=== PATIENT | male | born 1975 | race Caucasian/White ===

== ENCOUNTER 2016-05-04 11:41 | Emergency (ER) | payer OTHER ==
[2016-05-04] MEDS ORDERED: LIDOCAINE 2% W/EPIN INJ 20ML **PRES FREE As Ordered ONE (12:08)
[2016-05-04] MEDS ORDERED: ADACEL/BOOSTRIX VACCINE (DIPHTH/PERTUSS/ACELL/TETANUS)0.5ML SYR (90715) As Ordered ONE (13:01)
--- NOTE | 2016-05-04 13:08 | EDDOCDS ---
Nurse's Notes [facility] Name: Jarocho Mason Age: 41 yrs Sex: Male : 1975 Arrival Date: 05/04/2016 Time: 11:41 Bed PD Private MD: Ramirez Valente MD Diagnosis: Laceration without foreign body of scalp Presentation: 05/04 11:45 Presenting complaint: Patient states: tripped and fell and hit right side of head. pt dsf denies LOC. This patient has no additional risk factors. Mechanism of Injury: The problem was sustained at work, resulted from a direct blow. Adult Sepsis Screening: The patient does not have new or worsening altered mentation. Patient's respiratory rate is less than 22. Systolic blood pressure is greater than 100. Patient has a qSOFA score of 0- Negative Sepsis Screen. Suicide/Homicide risk assessment- the patient denies having any suicidal and/or homicidal ideations and does not present with any other emotional, behavioral or mental health complaints. Status: Patient is not a director of cardiopulmonary services or dependent. Transition of care: patient was not received from another setting of care. 11:45 Acuity: FACUNDO Level 4 dsf 11:45 Method Of Arrival: Wheelchair dsf Triage Assessment: 11:47 General: Appears in no apparent distress, Behavior is appropriate for age, cooperative. dsf Pain: Location: forehead Pain currently is 3 out of 10 on a pain scale. Quality of pain is described as aching. HIV screening NA for this visit Offered previously. Neurological: Level of Consciousness is awake, alert, Reports no additional symptoms. Historical: - Allergies: no known allergies; - Home Meds: 1. tramadol 50 mg Oral tab 1 tab every 6 hours (Last dose: Unknown) 2. Tylenol Arthritis Pain 650 mg oral TbER Unknown as needed - PMHx: none; - PSHx: 3 right knee surgeries; - Social history: Smoking status: Patient states was never smoker of tobacco. No barriers to communication noted, The patient speaks fluent Nigerien, Speaks appropriately for age. - Family history: Not pertinent. - : The pt / caregiver states he / she is not on anticoagulants. Home medication list is obtained from the patient. - Exposure Risk Screening:: None identified. Screenin:04 Screening information is obtained from the patient. Fall risk: No risks identified. dsf Assistance ADL's: requires no assistance with activities of daily living. Abuse/DV Screen: The patient / caregiver reports he/she is: not in a situation that causes fear, pain or injury. Nutritional screening: No deficits noted. Advance Directives: Currently, there is no health care proxy. home support is adequate. Assessment: 13:04 Adult Sepsis Screening: The patient does not have new or worsening altered mentation. dsf Patient's respiratory rate is less than 22. Systolic blood pressure is greater than 100. Patient has a qSOFA score of 0- Negative Sepsis Screen. General: Appears in no apparent distress, comfortable, Behavior is appropriate for age, cooperative. Pain: Denies pain. Neurological: Level of Consciousness is awake, alert. Cardiovascular: Capillary refill < 3 seconds. Respiratory: Airway is patent Respiratory effort is even, unlabored, Respiratory pattern is regular, symmetrical. Derm: Skin is pink, warm & dry. bandage on right side of forehead clean dry and intact. Vital Signs: 11:43 BP 156 / 90; Pulse 71; Resp 18; Temp 98.1(T); Pulse Ox 98% on R/A; Weight 90.72 kg; dem1 Height 5 ft. 11 in. (180.34 cm); Pain 3/10; 11:43 Body Mass Index 27.89 (90.72 kg, 180.34 cm) dem1 Vitals: 11:43 Log In Time: May 04, 2016 at 11:40. dem1 [place] Coma Score: 11:45 Eye Response: spontaneous(4). Verbal Response: oriented(5). Motor Response: obeys dsf commands(6). Total: 15. ED Course: 11:42 Patient visited by Roverto Rouse. dem1 11:42 Ramirez Valente is Private Physician. dem1 11:42 Patient moved to Waiting dem1 11:43 Patient moved to Pre RCE dem1 11:45 Triage Initiated dsf 11:48 Patient moved to Triage 2 dsf 11:50 Yuni Gillis PA is PHCP. btw 11:50 Grecia Billingsley MD is Attending Physician. btw 11:50 Patient visited by Yuni Gillis PA. btw 12:11 Patient moved to PD btw 12:50 [employer], . is Referral Physician. btw 12:50 Wetterhahn, Ramirez is Referral Physician. btw 13:04 The patient / caregiver is instructed regarding the plan of care and ED course. dsf 13:04 No IV's were initiated during this patient's visit. No procedures done that require dsf assistance. 13:05 [facility] Payment Agreement was scanned into [employer] and attached to record. mm15 Administered Medications: 12:31 Drug: Lidocaine-Epinephrine 10 ml [lidocaine 20 mg/mL (2 %)-epinephrine 1:100,000 kr3 injection solution (10 mL)] {Note: by yuni LANTIGUA.} Route: Infiltration; 13:04 CANCELLED (pt had one on 09/2014): Tetanus- Diptheria-Acellular Pertussis 0.5 ml IM dsf once; Routine booster 10-64yrs, >64 with child contact [facility] Order Results: There are currently no results for this order. Outcome: 12:51 Discharge ordered by Provider. btw 13:04 Discharge Assessment: Patient awake, alert and oriented x 3. No cognitive and/or dsf functional deficits noted. Patient verbalized understanding of disposition instructions. patient administered narcotics - no. The following High Risk Discharge criteria are identified: None. Discharged to work. Condition: stable. Discharge instructions given to patient, Instructed on discharge instructions, follow up and referral plans. Demonstrated understanding of instructions, Pt was receptive of discharge instructions/ teaching. No special radiology studies were completed. Property :Personal belongings accompany Pt. 13:06 Patient left the ED. dsf Signatures: Gracy Cagle RN RN kr3 Wolfenden, Brandon, PA PA btw Fuller, Desiree, RN RN dsf Mack, Demeishia dem1 Nayeli Quinn mm15 MTDTamra
--- NOTE | 2016-05-04 13:08 | EDDOCDS ---
Physician Documentation [facility] Name: Jarocho Mason Age: 41 yrs Sex: Male : 1975 Arrival Date: 05/04/2016 Time: 11:41 Bed PD Private MD: Ramirez Valente MD Disposition: 05/04/16 12:51 Discharged to Home/Self Care. Impression: Laceration without foreign body of scalp. - Condition is Stable. - Discharge Instructions: Laceration Care, Adult, Stitches, [place], or Adhesive Wound Closure, Facial Laceration, [id number]. - Medication Reconciliation, Local Pharmacy Hours form. - Follow up: Employee Health Office, .; When: Upon discharge from the Emergency Department; Reason: Further diagnostic work-up, Recheck today's complaints, Continuance of care. Follow up: Ramirez Valente; When: 1 week; Reason: Wound/Symptom Recheck, Staple/Suture removal. - Problem is new. - Symptoms have improved. Historical: - Allergies: no known allergies; - Home Meds: 1. tramadol 50 mg Oral tab 1 tab every 6 hours (Last dose: Unknown) 2. Tylenol Arthritis Pain 650 mg oral TbER Unknown as needed - PMHx: none; - PSHx: 3 right knee surgeries; - Social history: Smoking status: Patient states was never smoker of tobacco. No barriers to communication noted, The patient speaks fluent Azerbaijani, Speaks appropriately for age. - Family history: Not pertinent. - : The pt / caregiver states he / she is not on anticoagulants. Home medication list is obtained from the patient. - Exposure Risk Screening:: None identified. Vital Signs: 05/04 11:43 BP 156 / 90; Pulse 71; Resp 18; Temp 98.1(T); Pulse Ox 98% on R/A; Weight 90.72 kg / dem1 200 lbs; Height 5 ft. 11 in. (180.34 cm); Pain 3/10; 11:43 Body Mass Index 27.89 (90.72 kg, 180.34 cm) dem1 [place] Coma Score: 11:45 Eye Response: spontaneous(4). Verbal Response: oriented(5). Motor Response: obeys dsf commands(6). Total: 15. Procedures: 12:26 Laceration repair:. btw Laceration: 12:26 Wound Repair of 3.5cm ( 1.4in ) full thickness laceration to right frontal area and btw right side of forehead. Irregularly shaped.. Minimal bleeding noted.. Distal neuro/vascular/tendon intact. Anesthesia: Local anesthetic administered with 6 mls of 1% lidocaine w/ Epi. Wound prep: Simple cleansing with hibiclenz by provider, Wound irrigation with saline by provider, Wound explored moderately. Skin closed with 7 x 5-0 Prolene using Simple interrupted sutures. Dressed with bandaid. Patient tolerated well. MDM: 12:08 Lidocaine-Epinephrine 2 %-1:100,000 10 ml Infiltration once; to bedside ordered. btw 13:00 Financial registration complete. mm15 13:05 [facility] Payment Agreement was scanned into [employer] and attached to record. mm15 Administered Medications: 12:31 Drug: Lidocaine-Epinephrine 10 ml [lidocaine 20 mg/mL (2 %)-epinephrine 1:100,000 kr3 injection solution (10 mL)] {Note: by yuni LANTIGUA.} Route: Infiltration; 13:04 CANCELLED (pt had one on 09/2014): Tetanus- Diptheria-Acellular Pertussis 0.5 ml IM dsf once; Routine booster 10-64yrs, >64 with child contact [facility] Signatures: Yuni Gillis PA PA btw Gill LynnRN RN dsf Nayeli Quinn mm15 Gracy Cagle RN kr3 The chart was reviewed and I authenticate all verbal orders and agree with the evaluation and treatment provided.Corrections: (The following items were deleted from the chart) 13:04 12:54 Tetanus- Diptheria-Acellular Pertussis 0.5 ml IM once; Routine booster dsf 10-64yrs, >64 with child contact [place] ordered. btw Attachments: 13:05 [facility] Payment Agreement mm15 MTDD
--- NOTE | 2016-05-06 14:07 | EDDOCDS ---
Physician Documentation [facility] Name: Jarocho Mason Age: 41 yrs Sex: Male : 1975 Arrival Date: 05/04/2016 Time: 11:41 Bed PD Private MD: Ramirez Valente MD Disposition: 05/04/16 12:51 Discharged to Home/Self Care. Impression: Laceration without foreign body of scalp. - Condition is Stable. - Discharge Instructions: Laceration Care, Adult, Stitches, [place], or Adhesive Wound Closure, Facial Laceration, [id number]. - Medication Reconciliation, Local Pharmacy Hours form. - Follow up: Employee Health Office, .; When: Upon discharge from the Emergency Department; Reason: Further diagnostic work-up, Recheck today's complaints, Continuance of care. Follow up: Ramirez Valente; When: 1 week; Reason: Wound/Symptom Recheck, Staple/Suture removal. - Problem is new. - Symptoms have improved. Historical: - Allergies: no known allergies; - Home Meds: 1. tramadol 50 mg Oral tab 1 tab every 6 hours (Last dose: Unknown) 2. Tylenol Arthritis Pain 650 mg oral TbER Unknown as needed - PMHx: none; - PSHx: 3 right knee surgeries; - Social history: Smoking status: Patient states was never smoker of tobacco. No barriers to communication noted, The patient speaks fluent Central African, Speaks appropriately for age. - Family history: Not pertinent. - : The pt / caregiver states he / she is not on anticoagulants. Home medication list is obtained from the patient. - Exposure Risk Screening:: None identified. Vital Signs: 05/04 11:43 BP 156 / 90; Pulse 71; Resp 18; Temp 98.1(T); Pulse Ox 98% on R/A; Weight 90.72 kg / dem1 200 lbs; Height 5 ft. 11 in. (180.34 cm); Pain 3/10; 11:43 Body Mass Index 27.89 (90.72 kg, 180.34 cm) dem1 [place] Coma Score: 11:45 Eye Response: spontaneous(4). Verbal Response: oriented(5). Motor Response: obeys dsf commands(6). Total: 15. Procedures: 12:26 Laceration repair:. btw Laceration: 12:26 Wound Repair of 3.5cm ( 1.4in ) full thickness laceration to right frontal area and btw right side of forehead. Irregularly shaped.. Minimal bleeding noted.. Distal neuro/vascular/tendon intact. Anesthesia: Local anesthetic administered with 6 mls of 1% lidocaine w/ Epi. Wound prep: Simple cleansing with hibiclenz by provider, Wound irrigation with saline by provider, Wound explored moderately. Skin closed with 7 x 5-0 Prolene using Simple interrupted sutures. Dressed with bandaid. Patient tolerated well. MDM: 12:08 Lidocaine-Epinephrine 2 %-1:100,000 10 ml Infiltration once; to bedside ordered. btw 13:00 Financial registration complete. [facility] : [facility] Payment Agreement was scanned into [employer] and attached to record. [facility] 05/05 07:00 T-Sheet-- Draft Copy was scanned into [employer] and attached to record. gb Administered Medications: 05/04 12:31 Drug: Lidocaine-Epinephrine 10 ml [lidocaine 20 mg/mL (2 %)-epinephrine 1:100,000 kr3 injection solution (10 mL)] {Note: by yuni LANTIGUA.} Route: Infiltration; 13:04 CANCELLED (pt had one on 09/2014): Tetanus- Diptheria-Acellular Pertussis 0.5 ml IM dsf once; Routine booster 10-64yrs, >64 with child contact [place] Signatures: Florecita Mae, Reg Reg Yuni Gillis PA PA btw Gill Lynn RN RN dsf Nayeli Quinn mm15 Gracy Cagle RN kr3 The chart was reviewed and I authenticate all verbal orders and agree with the evaluation and treatment provided.Corrections: (The following items were deleted from the chart) 13:04 12:54 Tetanus- Diptheria-Acellular Pertussis 0.5 ml IM once; Routine booster dsf 10-64yrs, >64 with child contact [place] ordered. btw Attachments: 13:05 [facility] Payment Agreement mm15 05/05 07:00 T-Sheet-- Draft Copy gb Chart Complete MTDD
--- NOTE | 2016-05-06 14:07 | EDDOCDS ---
Nurse's Notes [facility] Name: Jarocho Mason Age: 41 yrs Sex: Male : 1975 Arrival Date: 05/04/2016 Time: 11:41 Bed PD Private MD: Ramirez Valente MD Diagnosis: Laceration without foreign body of scalp Presentation: 05/04 11:45 Presenting complaint: Patient states: tripped and fell and hit right side of head. pt dsf denies LOC. This patient has no additional risk factors. Mechanism of Injury: The problem was sustained at work, resulted from a direct blow. Adult Sepsis Screening: The patient does not have new or worsening altered mentation. Patient's respiratory rate is less than 22. Systolic blood pressure is greater than 100. Patient has a qSOFA score of 0- Negative Sepsis Screen. Suicide/Homicide risk assessment- the patient denies having any suicidal and/or homicidal ideations and does not present with any other emotional, behavioral or mental health complaints. 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 Transition of care: patient was not received from another setting of care. 11:45 Acuity: FACUNDO Level 4 dsf 11:45 Method Of Arrival: Wheelchair dsf Triage Assessment: 11:47 General: Appears in no apparent distress, Behavior is appropriate for age, cooperative. dsf Pain: Location: forehead Pain currently is 3 out of 10 on a pain scale. Quality of pain is described as aching. HIV screening NA for this visit Offered previously. Neurological: Level of Consciousness is awake, alert, Reports no additional symptoms. Historical: - Allergies: no known allergies; - Home Meds: 1. tramadol 50 mg Oral tab 1 tab every 6 hours (Last dose: Unknown) 2. Tylenol Arthritis Pain 650 mg oral TbER Unknown as needed - PMHx: none; - PSHx: 3 right knee surgeries; - Social history: Smoking status: Patient states was never smoker of tobacco. No barriers to communication noted, The patient speaks fluent Palestinian, Speaks appropriately for age. - Family history: Not pertinent. - : The pt / caregiver states he / she is not on anticoagulants. Home medication list is obtained from the patient. - Exposure Risk Screening:: None identified. Screenin:04 Screening information is obtained from the patient. Fall risk: No risks identified. dsf Assistance ADL's: requires no assistance with activities of daily living. Abuse/DV Screen: The patient / caregiver reports he/she is: not in a situation that causes fear, pain or injury. Nutritional screening: No deficits noted. Advance Directives: Currently, there is no health care proxy. home support is adequate. Assessment: 13:04 Adult Sepsis Screening: The patient does not have new or worsening altered mentation. dsf Patient's respiratory rate is less than 22. Systolic blood pressure is greater than 100. Patient has a qSOFA score of 0- Negative Sepsis Screen. General: Appears in no apparent distress, comfortable, Behavior is appropriate for age, cooperative. Pain: Denies pain. Neurological: Level of Consciousness is awake, alert. Cardiovascular: Capillary refill < 3 seconds. Respiratory: Airway is patent Respiratory effort is even, unlabored, Respiratory pattern is regular, symmetrical. Derm: Skin is pink, warm & dry. bandage on right side of forehead clean dry and intact. Vital Signs: 11:43 BP 156 / 90; Pulse 71; Resp 18; Temp 98.1(T); Pulse Ox 98% on R/A; Weight 90.72 kg; dem1 Height 5 ft. 11 in. (180.34 cm); Pain 3/10; 11:43 Body Mass Index 27.89 (90.72 kg, 180.34 cm) dem1 Vitals: 11:43 Log In Time: May 04, 2016 at 11:40. dem1 [place] Coma Score: 11:45 Eye Response: spontaneous(4). Verbal Response: oriented(5). Motor Response: obeys dsf commands(6). Total: 15. ED Course: 11:42 Patient visited by Roverto Rouse. dem1 11:42 Ramirez Valente is Private Physician. dem1 11:42 Patient moved to Waiting dem1 11:43 Patient moved to Pre RCE dem1 11:45 Triage Initiated dsf 11:48 Patient moved to Triage 2 dsf 11:50 Yuni Gillis PA is PHCP. btw 11:50 Grecia Billingsley MD is Attending Physician. btw 11:50 Patient visited by Yuni Gillis PA. btw 12:11 Patient moved to PD btw 12:50 [facility], . is Referral Physician. btw 12:50 Wetterhahn, Ramirez is Referral Physician. btw 13:04 The patient / caregiver is instructed regarding the plan of care and ED course. dsf 13:04 No IV's were initiated during this patient's visit. No procedures done that require dsf assistance. 13:05 [facility] Payment Agreement was scanned into [employer] and attached to record. mm15 05/05 07:00 T-Sheet-- Draft Copy was scanned into [employer] and attached to record. gb Administered Medications: 05/04 12:31 Drug: Lidocaine-Epinephrine 10 ml [lidocaine 20 mg/mL (2 %)-epinephrine 1:100,000 kr3 injection solution (10 mL)] {Note: by yuni LANTIGUA.} Route: Infiltration; 13:04 CANCELLED (pt had one on 09/2014): Tetanus- Diptheria-Acellular Pertussis 0.5 ml IM dsf once; Routine booster 10-64yrs, >64 with child contact [place] Order Results: There are currently no results for this order. Outcome: 12:51 Discharge ordered by Provider. btw 13:04 Discharge Assessment: Patient awake, alert and oriented x 3. No cognitive and/or dsf functional deficits noted. Patient verbalized understanding of disposition instructions. patient administered narcotics - no. The following High Risk Discharge criteria are identified: None. Discharged to work. Condition: stable. Discharge instructions given to patient, Instructed on discharge instructions, follow up and referral plans. Demonstrated understanding of instructions, Pt was receptive of discharge instructions/ teaching. No special radiology studies were completed. Property :Personal belongings accompany Pt. 13:06 Patient left the ED. dsf Signatures: Florecita Mae, Reg Reg Gracy Cagle,RN RN Yuni Gutierrez PA PA btw Fuller, Desiree,RN RN teef Roverto Rouse Marlynn mm15 Chart Complete MTDD
--- NOTE | 2016-05-06 14:07 | EDDOCDS ---
Physician Documentation [facility] Name: Jarocho Mason Age: 41 yrs Sex: Male : 1975 Arrival Date: 05/04/2016 Time: 11:41 Bed PD Private MD: Ramirez Valente MD Disposition: 05/04/16 12:51 Discharged to Home/Self Care. Impression: Laceration without foreign body of scalp. - Condition is Stable. - Discharge Instructions: Laceration Care, Adult, Stitches, [place], or Adhesive Wound Closure, Facial Laceration, [id number]. - Medication Reconciliation, Local Pharmacy Hours form. - Follow up: Employee Health Office, .; When: Upon discharge from the Emergency Department; Reason: Further diagnostic work-up, Recheck today's complaints, Continuance of care. Follow up: Ramirez Valente; When: 1 week; Reason: Wound/Symptom Recheck, Staple/Suture removal. - Problem is new. - Symptoms have improved. Historical: - Allergies: no known allergies; - Home Meds: 1. tramadol 50 mg Oral tab 1 tab every 6 hours (Last dose: Unknown) 2. Tylenol Arthritis Pain 650 mg oral TbER Unknown as needed - PMHx: none; - PSHx: 3 right knee surgeries; - Social history: Smoking status: Patient states was never smoker of tobacco. No barriers to communication noted, The patient speaks fluent Zimbabwean, Speaks appropriately for age. - Family history: Not pertinent. - : The pt / caregiver states he / she is not on anticoagulants. Home medication list is obtained from the patient. - Exposure Risk Screening:: None identified. Vital Signs: 05/04 11:43 BP 156 / 90; Pulse 71; Resp 18; Temp 98.1(T); Pulse Ox 98% on R/A; Weight 90.72 kg / dem1 200 lbs; Height 5 ft. 11 in. (180.34 cm); Pain 3/10; 11:43 Body Mass Index 27.89 (90.72 kg, 180.34 cm) dem1 [place] Coma Score: 11:45 Eye Response: spontaneous(4). Verbal Response: oriented(5). Motor Response: obeys dsf commands(6). Total: 15. Procedures: 12:26 Laceration repair:. btw Laceration: 12:26 Wound Repair of 3.5cm ( 1.4in ) full thickness laceration to right frontal area and btw right side of forehead. Irregularly shaped.. Minimal bleeding noted.. Distal neuro/vascular/tendon intact. Anesthesia: Local anesthetic administered with 6 mls of 1% lidocaine w/ Epi. Wound prep: Simple cleansing with hibiclenz by provider, Wound irrigation with saline by provider, Wound explored moderately. Skin closed with 7 x 5-0 Prolene using Simple interrupted sutures. Dressed with bandaid. Patient tolerated well. MDM: 12:08 Lidocaine-Epinephrine 2 %-1:100,000 10 ml Infiltration once; to bedside ordered. btw 13:00 Financial registration complete. [facility] : [facility] Payment Agreement was scanned into [employer] and attached to record. [facility] 05/05 07:00 T-Sheet-- Draft Copy was scanned into [employer] and attached to record. gb Administered Medications: 05/04 12:31 Drug: Lidocaine-Epinephrine 10 ml [lidocaine 20 mg/mL (2 %)-epinephrine 1:100,000 kr3 injection solution (10 mL)] {Note: by yuni LANTIGUA.} Route: Infiltration; 13:04 CANCELLED (pt had one on 09/2014): Tetanus- Diptheria-Acellular Pertussis 0.5 ml IM dsf once; Routine booster 10-64yrs, >64 with child contact [place] [employer] Signatures: Florecita Mae, Reg Reg Yuni Gillis PA PA btw Gill Lynn RN RN dsf Nayeli Quinn mm15 Gracy Cagle RN kr3 The chart was reviewed and I authenticate all verbal orders and agree with the evaluation and treatment provided.Corrections: (The following items were deleted from the chart) 13:04 12:54 Tetanus- Diptheria-Acellular Pertussis 0.5 ml IM once; Routine booster dsf 10-64yrs, >64 with child contact [place] ordered. btw Attachments: 13:05 [facility] Payment Agreement mm15 05/05 07:00 T-Sheet-- Draft Copy gb Chart Complete MTDD
== END 2016-05-04 13:06 | disposition home or self-care (01) ==
LOC: M ED 11:41
DX: S01.01XA Laceration without foreign body of scalp, initial encounter (principal); W18.09XA Striking against other object with subsequent fall, initial encounter; Y92.89 Other specified places as the place of occurrence of the external cause; Y93.89 Activity, other specified; Y99.0 Civilian activity done for income or pay

== ENCOUNTER → 2016-05-17 | Outpatient (CLI) | payer OTHER ==
[2016-05-17 19:07] LABS: ALBUMIN 4.2 GM/DL (3.2-5.2); ALBUMIN/GLOBULIN RATIO 1.27 (1.00-1.93); ALKALINE PHOSPHATASE 111 U/L (45-117); ALT/SGPT 42 U/L (12-78); ANION GAP 7 MEQ/L (8-16); AST/SGOT 24 U/L (15-37); BILIRUBIN,DIRECT < 0.1 MG/DL (0.0-0.2); BILIRUBIN,TOTAL 0.3 MG/DL (0.2-1.0); BLOOD UREA NITROGEN 22 MG/DL (7-18); CALCIUM LEVEL 8.8 MG/DL (8.5-10.1); CARBON DIOXIDE LEVEL 32 MEQ/L (21-32); CHLORIDE LEVEL 101 MEQ/L (98-107); CREATININE FOR GFR 1.18 MG/DL (0.70-1.30); GLOMERULAR FILTRATION RATE > 60.0 (>60); GLUCOSE, FASTING 78 MG/DL (70-105); POTASSIUM SERUM 3.9 MEQ/L (3.5-5.1); SODIUM LEVEL 140 MEQ/L (136-145); TOTAL PROTEIN 7.5 GM/DL (6.4-8.2)
== END ==
LOC: M LAB 18:23
PROVIDERS: ATTEND Physician Assistant
DX: M17.11 Unilateral primary osteoarthritis, right knee (principal)

== ENCOUNTER → 2016-12-14 | Outpatient (CLI) | payer OTHER ==
[2016-12-14 18:28] LABS: CREATININE FOR GFR 1.58 MG/DL (0.70-1.30); GLOMERULAR FILTRATION RATE 51.5 (>60)
== END ==
LOC: M LAB 16:42
PROVIDERS: ATTEND Physician Assistant
DX: Z79.899 Other long term (current) drug therapy (principal)

== ENCOUNTER → 2017-10-25 | Outpatient (CLI) | payer OTHER ==
[2017-10-25 19:03] LABS: ANION GAP 9 MEQ/L (8-16); BLOOD UREA NITROGEN 22 MG/DL (7-18); CARBON DIOXIDE LEVEL 29 MEQ/L (21-32); CHLORIDE LEVEL 106 MEQ/L (98-107); CHOLESTEROL LEVEL 224 MG/DL (<200); CHOLESTEROL RISK RATIO 4.226 (<5); CREATININE FOR GFR 0.99 MG/DL (0.70-1.30); GLOMERULAR FILTRATION RATE > 60.0 (>60); GLUCOSE, FASTING 94 MG/DL (70-100); HDL CHOLESTEROL 53 MG/DL (>40); LDL CHOLESTEROL 118.6 MG/DL (<100); NON-HDL-C 171 MG/DL; POTASSIUM SERUM 4.7 MEQ/L (3.5-5.1); SODIUM LEVEL 144 MEQ/L (136-145); TRIGLYCERIDES LEVEL 262 MG/DL (<150)
[2017-10-26 09:54] LABS: HEPATITIS C VIRUS ABY INDEX 0.1 INDEX (<0.8)
[2017-10-26 09:55] LABS: HIV 1&2 SCREEN CENTAUR NEGATIVE (NEGATIVE)
== END ==
LOC: M LAB 18:02
DX: Z11.59 Encounter for screening for other viral diseases (principal); Z76.89 Persons encountering health services in other specified circumstances; Z13.220 Encounter for screening for lipoid disorders; Z13.1 Encounter for screening for diabetes mellitus
CPT/HCPCS: 80061

== ENCOUNTER → 2017-12-14 | Outpatient (CLI) | payer OTHER ==
[2017-12-14 20:05] LABS: APPEARANCE, URINE CLEAR (CLEAR); BACTERIA, URINE AUTO NEGATIVE (NEGATIVE); BILIRUBIN, URINE AUTO NEGATIVE (NEGATIVE); BLOOD, URINE BLOOD NEGATIVE (NEGATIVE); COLOR, URINE YELLOW (YELLOW); GLUCOSE, URINE (UA) AUTO NEGATIVE (NEGATIVE); KETONE, URINE AUTO NEGATIVE (NEGATIVE); LEUKOCYTE ESTERASE, URINE AUTO NEGATIVE (NEGATIVE); MUCUS, URINE SMALL (NEGATIVE); NITRITE, URINE AUTO NEGATIVE (NEGATIVE); PROTEIN, URINE AUTO NEGATIVE (NEGATIVE); RBC, URINE AUTO 0 /HPF (0-3); SPECIFIC GRAVITY URINE AUTO 1.021 (1.002-1.035); SQUAMOUS EPITHELIAL CELL UR AU 0 /HPF (0-6); UROBILINOGEN, URINE AUTO 0.2 mg/dL (0.0-2.0); WBC, URINE AUTO 0 /HPF (0-3)
== END ==
LOC: M LAB 19:45
DX: I10 Essential (primary) hypertension (principal)
CPT/HCPCS: 81001

== ENCOUNTER 2018-01-10 11:24 | Day surgery (SDC) | payer OTHER ==
[~2018-01-10 11:24] MED LIST: MIDAZOLAM INJ 2 MG/2 ML VIAL (J2250) As Ordered; OFLOXACIN 0.3 % (OCUFLOX) OPTH SOL 5ML OS; PHENYLEPHRINE 2.5% OPHTH SOL 2ML OS; PROPARACAINE 0.5% OPHTH SOL 15ML OS; TROPICAMIDE 1% OPHTH SOLN 2ML OS
[2018-01-10] MEDS: BALANCED SALT IRRIGATION SOLUTION 500ML BAG (FOR OR EYE MACHINE) As Ordered (12:38)
[2018-01-10] MEDS: POVIDONE-IODINE 5% OPHTH PREP SOL 30ML As Ordered (12:38)
[2018-01-10] MEDS ORDERED: fentaNYL 100 MCG/2 ML INJECTION (J3010) As Ordered (12:38)
[2018-01-10] MEDS: DUOVISC (0.50ML VISCOAT/0.55ML PROVISC) OPHTH KIT As Ordered (12:39)
[2018-01-10] MEDS: LIDOCAINE 0.75%/EPINEPHRINE 0.025% IN BSS 1ML SYR INTRACAMERAL (OR ONLY) As Ordered (12:39)
[2018-01-10] MEDS: CEFUROXIME 1MG/0.1ML INTRACAMERAL INJ As Ordered (12:39)
[2018-01-10] MEDS ORDERED: MIDAZOLAM INJ 2 MG/2 ML VIAL (J2250) As Ordered (12:39)
[2018-01-10] MEDS ORDERED: DUOVISC (0.50ML VISCOAT/0.55ML PROVISC) OPHTH KIT As Ordered (12:55)
== END 2018-01-10 13:45 | disposition home or self-care (01) ==
LOC: M SDC 13:45
DX: H25.12 Age-related nuclear cataract, left eye (principal); I10 Essential (primary) hypertension; K21.9 Gastro-esophageal reflux disease without esophagitis; Z87.891 Personal history of nicotine dependence; Z79.899 Other long term (current) drug therapy
CPT/HCPCS: 66984

== ENCOUNTER → 2018-02-13 | Outpatient (CLI) | payer OTHER ==
[2018-02-13 19:45] LABS: ANION GAP 6 MEQ/L (8-16); BLOOD UREA NITROGEN 17 MG/DL (7-18); CALCIUM LEVEL 9.5 MG/DL (8.5-10.1); CARBON DIOXIDE LEVEL 29 MEQ/L (21-32); CHLORIDE LEVEL 104 MEQ/L (98-107); GLOMERULAR FILTRATION RATE > 60.0 (>60); GLUCOSE, FASTING 92 MG/DL (70-100); POTASSIUM SERUM 4.8 MEQ/L (3.5-5.1); SODIUM LEVEL 139 MEQ/L (136-145)
[2018-02-13 19:55] LABS: CREATININE, URINE 93.5 MG/DL; MALB URINE SIEMENS 5.3 MG/L
[2018-02-13 19:58] LABS: MAU/CREAT RATIO 5.7 MCG/MG (0.0-30.0)
== END ==
LOC: M LAB 16:34
DX: I10 Essential (primary) hypertension (principal)
CPT/HCPCS: 82043

== ENCOUNTER → 2018-05-10 | Outpatient (CLI) | payer OTHER ==
[~2018-05-10] MED LIST changes: +BENA25TA10 PO; +GLUC15009 PO; +LISI10TA4 PO; -MIDAZOLAM INJ 2 MG/2 ML VIAL (J2250) As Ordered; -OFLOXACIN 0.3 % (OCUFLOX) OPTH SOL 5ML OS; -PHENYLEPHRINE 2.5% OPHTH SOL 2ML OS; -PROPARACAINE 0.5% OPHTH SOL 15ML OS; +RANI15TA PO; +TRAM50TA2 PO; -TROPICAMIDE 1% OPHTH SOLN 2ML OS
[2018-05-10 20:07] LABS: ALT/SGPT 41 U/L (12-78); BILIRUBIN,TOTAL 0.5 MG/DL (0.2-1.0); BLOOD UREA NITROGEN 14 MG/DL (7-18); CALCIUM LEVEL 9.1 MG/DL (8.5-10.1); CARBON DIOXIDE LEVEL 29 MEQ/L (21-32); CHLORIDE LEVEL 103 MEQ/L (98-107); CREATININE FOR GFR 1.06 MG/DL (0.70-1.30); GLOMERULAR FILTRATION RATE > 60.0 (>60); GLUCOSE, FASTING 117 MG/DL (70-100); POTASSIUM SERUM 4.6 MEQ/L (3.5-5.1); SODIUM LEVEL 139 MEQ/L (136-145)
== END ==
LOC: M LAB 19:23
PROVIDERS: ATTEND Obstetrics & Gynecology
DX: I10 Essential (primary) hypertension (principal)

== ENCOUNTER → 2018-11-29 | Outpatient (CLI) | payer OTHER ==
[2018-11-29 17:08] LABS: BLOOD UREA NITROGEN 10 MG/DL (7-18); CALCIUM LEVEL 9.7 MG/DL (8.5-10.1); CARBON DIOXIDE LEVEL 26 MEQ/L (21-32); CHLORIDE LEVEL 106 MEQ/L (98-107); CHOLESTEROL LEVEL 199 MG/DL (<200); CHOLESTEROL RISK RATIO 3.158 (<5); CREATININE FOR GFR 1.14 MG/DL (0.70-1.30); GLOMERULAR FILTRATION RATE > 60.0 (>60); GLUCOSE, FASTING 93 MG/DL (70-100); HDL CHOLESTEROL 63 MG/DL (>40); LDL CHOLESTEROL 109 MG/DL (<100); NON-HDL-C 136 MG/DL; POTASSIUM SERUM 4.2 MEQ/L (3.5-5.1); SODIUM LEVEL 140 MEQ/L (136-145); TRIGLYCERIDES LEVEL 137 MG/DL (<150)
== END ==
LOC: M LAB 16:16
PROVIDERS: ATTEND Obstetrics & Gynecology
DX: Z13.220 Encounter for screening for lipoid disorders (principal); I10 Essential (primary) hypertension

== ENCOUNTER → 2019-09-30 | Outpatient (CLI) | payer OTHER ==
[2019-09-30 19:13] LABS: BLOOD UREA NITROGEN 21 MG/DL (7-18); CARBON DIOXIDE LEVEL 28 MEQ/L (21-32); CHLORIDE LEVEL 101 MEQ/L (98-107); GLOMERULAR FILTRATION RATE > 60.0 (>60); GLUCOSE, FASTING 95 MG/DL (70-100); POTASSIUM SERUM 4.4 MEQ/L (3.5-5.1); SODIUM LEVEL 136 MEQ/L (136-145)
== END ==
LOC: M LAB 18:15
PROVIDERS: ATTEND Obstetrics & Gynecology
DX: I10 Essential (primary) hypertension (principal)

== ENCOUNTER → 2020-07-28 | Outpatient (CLI) | payer OTHER ==
[~2020-07-28] MED LIST changes: +LISI10TA22 PO; -LISI10TA4 PO
[2020-07-28 19:43] LABS: BLOOD UREA NITROGEN 20 MG/DL (7-18); CALCIUM LEVEL 9.4 MG/DL (8.5-10.1); CARBON DIOXIDE LEVEL 28 MEQ/L (21-32); CHLORIDE LEVEL 101 MEQ/L (98-107); CHOLESTEROL LEVEL 210 MG/DL (<200); CREATININE FOR GFR 0.94 MG/DL (0.70-1.30); GLOMERULAR FILTRATION RATE > 60.0 (>60); GLUCOSE, FASTING 98 MG/DL (70-100); HDL CHOLESTEROL 65 MG/DL (>40); HEMOGLOBIN A1c 5.3 %; LDL CHOLESTEROL 92 MG/DL (<100); NON-HDL-C 145 MG/DL; POTASSIUM SERUM 4.5 MEQ/L (3.5-5.1); SODIUM LEVEL 134 MEQ/L (136-145); TRIGLYCERIDES LEVEL 264 MG/DL (<150)
== END ==
LOC: M LAB 18:57
PROVIDERS: ATTEND Student in an Organized Health Care Education/Training Program
DX: E66.3 Overweight (principal); I10 Essential (primary) hypertension

== ENCOUNTER → 2021-07-18 | Outpatient (CLI) | payer OTHER | LOC: M LABSMTC 12:00 | PROVIDERS: ATTEND Anesthesiology | DX: Z01.818 Encounter for other preprocedural examination (principal); Z11.52 Encounter for screening for COVID-19 ==

== ENCOUNTER 2021-07-22 10:43 | Day surgery (SDC) | payer OTHER ==
[~2021-07-22] VITALS: Ht 180.3 cm; Wt 92.0 kg
[~2021-07-22 10:43] MED LIST changes: +ACET-683 PO; +CVS1CAP69 PO; +FAMO10TA50 PO; +NS 1,000 ML IV ONE; +VITMTA PO
[2021-07-22] MEDS ORDERED: LIDOCAINE 2% 100MG/5ML SDV (FOR ANES.) As Ordered ONE (12:06)
[2021-07-22] MEDS ORDERED: propofoL 200 MG/20 ML VIAL As Ordered ONE ×2 (12:06→12:52)
[2021-07-22 13:31] VITALS: BP 117/66
== END 2021-07-22 13:34 | disposition home or self-care (01) ==
LOC: M OPP 10:43
PROVIDERS: ATTEND Internal Medicine Gastroenterology
DX: Z12.11 Encounter for screening for malignant neoplasm of colon (principal); K57.30 Diverticulosis of large intestine without perforation or abscess without bleeding; K64.8 Other hemorrhoids; Z79.891 Long term (current) use of opiate analgesic; Z79.899 Other long term (current) drug therapy; Z87.891 Personal history of nicotine dependence

== ENCOUNTER → 2021-11-05 | Outpatient (CLI) | payer OTHER ==
[~2021-11-05] MED LIST changes: -NS 1,000 ML IV ONE
[2021-11-05 11:42] LABS: HEMOGLOBIN A1c 5.3 %
[2021-11-05 11:57] LABS: BLOOD UREA NITROGEN 19 MG/DL (7-18); CALCIUM LEVEL 9.7 MG/DL (8.5-10.1); CARBON DIOXIDE LEVEL 26 MEQ/L (21-32); CHLORIDE LEVEL 106 MEQ/L (98-107); CHOLESTEROL LEVEL 178 MG/DL (<200); CHOLESTEROL RISK RATIO 2.542 (<5); GLOMERULAR FILTRATION RATE > 60.0 (>60); GLUCOSE, FASTING 107 MG/DL (70-100); HDL CHOLESTEROL 70 MG/DL (>40); LDL CHOLESTEROL 91 MG/DL (<100); NON-HDL-C 108 MG/DL; POTASSIUM SERUM 4.6 MEQ/L (3.5-5.1); SODIUM LEVEL 139 MEQ/L (136-145); TRIGLYCERIDES LEVEL 84 MG/DL (<150)
== END ==
LOC: M LAB 10:58
PROVIDERS: ATTEND Student in an Organized Health Care Education/Training Program
DX: I10 Essential (primary) hypertension (principal); E66.3 Overweight

== ENCOUNTER → 2022-11-27 | Outpatient (CLI) | payer OTHER ==
[2022-11-27 16:38] LABS: APPEARANCE, URINE CLEAR (CLEAR); BACTERIA, URINE AUTO NEGATIVE (NEGATIVE); BILIRUBIN, URINE AUTO NEGATIVE (NEGATIVE); BLOOD, URINE BLOOD NEGATIVE (NEGATIVE); COLOR, URINE YELLOW (YELLOW); GLUCOSE, URINE (UA) AUTO NEGATIVE (NEGATIVE); KETONE, URINE AUTO TRACE mg/dL (NEGATIVE); LEUKOCYTE ESTERASE, URINE AUTO NEGATIVE (NEGATIVE); NITRITE, URINE AUTO NEGATIVE (NEGATIVE); PROTEIN, URINE AUTO NEGATIVE (NEGATIVE); RBC, URINE AUTO 0 /HPF (0-3); SPECIFIC GRAVITY URINE AUTO 1.017 (1.002-1.035); SQUAMOUS EPITHELIAL CELL UR AU 0 /HPF (0-6); UROBILINOGEN, URINE AUTO 0.2 mg/dL (0.0-2.0); WBC, URINE AUTO 1 /HPF (0-3)
[2022-11-27 16:50] LABS: ALBUMIN 4.5 G/DL (3.2-5.2); ALKALINE PHOSPHATASE 86 U/L (46-116); ALT/SGPT 35 U/L (7.0-40); AST/SGOT 22 U/L (<34); BILIRUBIN,TOTAL 0.7 MG/DL (0.3-1.2); BLOOD UREA NITROGEN 15 MG/DL (9-23); CALCIUM LEVEL 9.5 MG/DL (8.5-10.1); CARBON DIOXIDE LEVEL 25 MMOL/L (20-31); CHLORIDE LEVEL 100 MMOL/L (98-107); CREATININE FOR GFR 0.83 MG/DL (0.70-1.30); GLOMERULAR FILTRATION RATE > 60.0 (>60); GLUCOSE, FASTING 89 MG/DL (60-100); POTASSIUM SERUM 4.1 MMOL/L (3.5-5.1); SODIUM LEVEL 136 MMOL/L (136-145); TOTAL PROTEIN 6.9 G/DL (5.7-8.2)
== END ==
LOC: M LAB 15:50
PROVIDERS: ATTEND Student in an Organized Health Care Education/Training Program
DX: I10 Essential (primary) hypertension (principal)

== ENCOUNTER → 2023-04-05 | Outpatient (REF) | LOC: M EMP 12:37 | PROVIDERS: ATTEND Family Medicine | DX: Z11.52 Encounter for screening for COVID-19 (principal) ==

== ENCOUNTER → 2023-04-19 | Outpatient (CLI) | payer OTHER | LOC: M RAD 17:00 | PROVIDERS: ATTEND Student in an Organized Health Care Education/Training Program | DX: M25.551 Pain in right hip (principal) ==

== ENCOUNTER → 2023-06-12 | Outpatient (CLI) | payer OTHER | LOC: M RAD 07:07 | PROVIDERS: ATTEND Physician Assistant Surgical | DX: M54.59 Other low back pain (principal) ==

== ENCOUNTER → 2024-07-31 | Outpatient (CLI) | payer OTHER ==
[2024-07-31 17:45] LABS: BLOOD UREA NITROGEN 17 MG/DL (9-23); CALCIUM LEVEL 9.5 MG/DL (8.5-10.1); CARBON DIOXIDE LEVEL 27 MMOL/L (20-31); CHLORIDE LEVEL 103 MMOL/L (98-107); CHOLESTEROL LEVEL 186 MG/DL (<200); CHOLESTEROL RISK RATIO 3.04 (<5); CREATININE FOR GFR 0.89 MG/DL (0.70-1.30); GLOMERULAR FILTRATION RATE > 60.0 (>56); GLUCOSE, FASTING 97 MG/DL (60-100); LDL CHOLESTEROL 110.6 MG/DL (<100); POTASSIUM SERUM 4.7 MMOL/L (3.5-5.1); SODIUM LEVEL 139 MMOL/L (136-145); TRIGLYCERIDES LEVEL 72 MG/DL (<150)
[2024-07-31 17:50] LABS: HEMOGLOBIN A1c 5.1 % (4.0-6.0)
== END ==
LOC: M LAB 16:51
PROVIDERS: ATTEND Student in an Organized Health Care Education/Training Program
DX: Z00.00 Encounter for general adult medical examination without abnormal findings (principal)

== ENCOUNTER → 2025-01-28 | Outpatient (REF) | LOC: M EMP 10:36 | PROVIDERS: ATTEND Family Medicine | DX: Z01.89 Encounter for other specified special examinations (principal) ==